=== PATIENT | female | born 1970 | race Caucasian/White ===

== ENCOUNTER → 2017-12-27 | Outpatient (CLI) | payer BC, OTHER ==
[~2017-12-27] MED LIST: ACETAMINOPHEN325 M1 PO; CLARITIN10 MG PO; IBUPROFEN 600600 M1 PO; LORTAB 5 MG/5001 TA1 PO; SIMETHICON CHEW80 M1 PO; ZYRTEC10 M2 PO
== END ==
LOC: RAD 11:05
DX: Z12.31 Encounter for screening mammogram for malignant neoplasm of breast (principal)

== ENCOUNTER → 2018-01-01 | Outpatient (CLI) | payer BC, OTHER | LOC: ULTRA 14:12 | DX: N63.20 Unspecified lump in the left breast, unspecified quadrant (principal); N63.10 Unspecified lump in the right breast, unspecified quadrant ==